=== PATIENT | female | born 1985 | race Caucasian/White ===

== ENCOUNTER 2017-07-08 06:45 | Inpatient (IN) | payer BC ==
[~2017-07-08] VITALS: Ht 157.5 cm; Wt 60.6 kg
--- NOTE | ~2017-07-08 | OP ---
Record Of Operation [facility] [address] [place]. [address] NAME: IRENA GRANDE : 83 STATUS : ADM IN PAT#: [id number] AGE: 32 ADM/REG DATE : 07/08/17 MR#: [id number] REPORT SERV DATE: 07/08/17 DICTATED BY: JORGE A SEALS DATE: 07/08/17 REPORT STATUS : Draft TRANSCRIBED BY: SMOOTH DATE: 07/08/17 DATE OF PROCEDURE: 07/08/2017 PREOPERATIVE DIAGNOSES: 1. Progressive thoracic kyphosis. 2. Scheuermann's kyphosis. 3. Thoracic myelopathy. POSTOPERATIVE DIAGNOSES: 1. Progressive thoracic kyphosis. 2. Scheuermann's kyphosis. 3. Thoracic myelopathy. PROCEDURES: 1. T4-T11 posterolateral fusion bilaterally. 2. T4-T11 posterior segmental spinal instrumentation using Medtronic pedicle screws. 3. T6-T8 laminectomy. 4. T6, T7, and T8 transverse osteotomies. 5. Local morcellized autograft, allograft bone matrix, neuro monitoring, intraoperative O- arm CT scan with computer navigation. 6. Correction of sagittal plane kyphotic deformity. ANESTHESIA: General estimated. BLOOD LOSS: 550 mL. COMPLICATIONS: None. INDICATIONS: The patient is a pleasant 32-year-old with progressive kyphotic deformity, gait disturbance, difficulty with ambulation, failed conservative treatment and after discussion of risks and benefits, elected to proceed with surgery. PROCEDURE IN DETAIL: I identified the patient in the holding area. Consent was obtained. Went to the operating room. Underwent general anesthesia with endotracheal intubation. Prepped and draped in the usual sterile fashion. Operative safety pause was performed, and then we proceeded. A midline longitudinal incision was taken from T4 down to T11, taken down through the fascial layer. Paraspinous muscles subperiosteally elevated to the tips of transverse processes. Self-retaining retractors were placed. O-arm registration frame was placed in the spinous process. O-arm was brought in for intraoperative CT scan. Under computer guidance, pedicle screws from [employer]tr[employer] were placed from T4-T11 bilaterally. O-arm was brought back in for repeat scan to verify good placement of instrumentation. Rods were cut and contoured to appropriate shape and length, placed over the screws and gently reduced. There is some auto fusion in her thoracic spine limiting the degree of correction possible, so as a result, a laminectomy was performed from T6-T8 and transverse osteotomies were performed with series of rongeurs and Kerrison's. Rods were gently and sequentially reduced down to the screws using reduction maneuvers including the persuader device as well Record Of Operation [facility] [id number] [place]. [address] NAME: IRENA GRANDE : 83 STATUS : ADM IN PAT#: [id number] AGE: 32 ADM/REG DATE : 07/08/17 MR#: [id number] REPORT SERV DATE: 07/08/17 DICTATED BY: JORGE A SEALS DATE: 07/08/17 REPORT STATUS : Draft TRANSCRIBED BY: SMOOTH DATE: 07/08/17 as the compression against the screws as well as in situ Benders of the rods. Each of these technique added to further reduction of the kyphotic deformity. Setscrews were placed and final tightened. Final AP and lateral images were obtained that showed substantial correction from her preoperative kyphotic deformity. High-speed decorticating kevin was used to decorticate the remaining bony surfaces of T4-T11. Irrigation performed. Local morcellized autograft and allograft bone matrix were packed over the decorticated surfaces of T4-T11. Subfascial drain was placed. A gram of vancomycin powder sprinkled over the surgical wound. Layered closure performed. Sterile dressings applied. The patient was awoken and extubated, taken to the recovery room in stable condition. OPERATIVE FINDINGS: Severe kyphotic deformity with partial ankylosis, no sustained neuromonitoring alerts occurred. HARPREET/SMOOTH Jorge A Seals DO / [id number] CC: Jorge A Seals DO
--- NOTE | ~2017-07-08 | PREOPHP ---
PreOp History and Physical [facility] [id number] [place]. [address] NAME: IRENA GRANDE : 83 STATUS : ADM IN [facility]#: [id number] AGE: 32 ADM/REG DATE : 07/08/17 MR#: [id number] REPORT SERV DATE: 07/08/17 DICTATED BY: JORGE A SEALS DATE: 07/08/17 REPORT STATUS : Draft TRANSCRIBED BY: SMOOTH DATE: 07/08/17 CHIEF COMPLAINT: Back pain. HISTORY OF PRESENT ILLNESS: The patient is a pleasant 32-year-old female with intractable back pain. She has had progressive signs of kyphosis, difficulty ambulating. She does have some problems with balance. She has failed conservative treatment and after discussion of risks and benefits, elects to proceed with surgical intervention. REVIEW OF SYSTEMS: She denies chest pain, shortness of breath, and bowel or bladder changes. ALLERGIES: EDMUND. HOME MEDICATIONS: Doryx MPC, Onzetra, Soolantra, and topiramate. FAMILY HISTORY: Noncontributory. PAST MEDICAL HISTORY: Includes migraines. PHYSICAL EXAMINATION: VITAL SIGNS: Height is 5 feet 2 inches, weight 133, BMI 24.3. GENERAL: Patient is healthy appearing. No acute distress. PSYCH: Alert and oriented x3. Normal mood and affect. Gait is somewhat unsteady. VASCULAR: No extremity swelling. SPINE: Within normal limits for motion, but has increased thoracic kyphosis. Does seem to reduce somewhat when supine versus standard. HEART: Regular rate and rhythm. LUNGS: Clear to auscultation. ABDOMEN: Soft, nontender, nondistended. Good bowel sounds. BREASTS AND RECTAL: Both deferred. NEUROLOGIC: Strength in lower extremities remains intact. No focal deficits. IMAGING: I have reviewed plain x-rays that does show signs of Scheuermann kyphosis with 74 degrees of kyphosis. MRI scan shows decent reduction of the kyphosis down to 53 degrees. ASSESSMENT: Progressive Scheuermann kyphosis with intractable pain, early signs of myelopathy, likely due to stretch of the thoracic cord from the severe kyphotic deformity. PLAN: The patient presents today for surgical intervention. Consent was obtained. All questions answered. Ready to proceed with surgery. HARPREET/SMOOTH Jorge A Seals DO PreOp History and Physical [address] [place]. [address] NAME: IRENA GRANDE : 83 STATUS : ADM IN PAT#: [id number] AGE: 32 ADM/REG DATE : 07/08/17 MR#: [id number] REPORT SERV DATE: 07/08/17 DICTATED BY: JORGE A SEALS DATE: 07/08/17 REPORT STATUS : Draft TRANSCRIBED BY: JLL DATE: 07/08/17 / [id number] CC: DO Cristian Weir M.D.
[~2017-07-08 06:45] MED LIST: DIFFERIN 0.1% TOP; SOOLANTRA 1% TOP; SUMATRIPTAN NAS; TOPAMAX100 PO; ZOFRAN4 PO
[2017-07-08 18:57] LABS: HEMATOCRIT 35.8 % (36.0-48.0); HEMOGLOBIN 12.4 g/dL (12.0-16.0); MANUAL DIFF YES %; MEAN CORPUS HGB CONC 34.6 g/dL (32.0-36.0); MEAN CORPUSCULAR HEMOGLOB 30.1 pg (26.0-34.0); MEAN CORPUSCULAR VOLUME 86.9 fL (80-100); PLATELET COUNT 228 10/3/uL (150-400); RBC DISTRIBUTION WIDTH 12.8 % (12.0-16.0); RED CELL COUNT 4.12 10/6/uL (4.0-5.6); WHITE BLOOD CELLS 17.2 10/3/uL (4.5-10.5)
[2017-07-08 19:12] LABS: BUN (BLOOD UREA NITROGEN) 9 MG/DL (6-23); CHLORIDE, SERUM 114 MMOL/L (96-112); CO2 (CARBON DIOXIDE) 22 MMOL/L (24-34); CREATININE 0.55 MG/DL (0.55-1.02); GFR AFRICAN AMERICAN 143 ML/MIN (>=60); GFR NON AFRICAN AMERICAN 123 ML/MIN (>=60); POTASSIUM, SERUM 3.9 MMOL/L (3.5-5.3); SODIUM, SERUM 144 MMOL/L (135-148)
[2017-07-08 19:13] LABS: GLUCOSE, SERUM 142 MG/DL (60-99)
[2017-07-08 20:00] LABS: BAND NEUTROPHILS 9 %; LYMPHOCYTES 3 %; LYMPHOCYTES ABSOLUTE (CALC) 0.52 10/3/uL (0.67-4.30); MONOCYTES 2 %; MONOCYTES ABSOLUTE (CALC) 0.34 10/3/uL (0.21-1.20); NEUTROPHILS ABSOLUTE (CALC) 16.34 10/3/uL (2.02-8.40); PLATELET ESTIMATE ADQ (ADEQUATE); RBC MORPHOLOGY NORM (NORMAL); SEGMENTED NEUTROPHIL (0) 86 %; TOTAL NUCLEATED CELLS 100
[2017-07-08] MEDS ORDERED: IBU800 PO (21:13)
[2017-07-08] MEDS ORDERED: PROBIOTIC PO (21:13)
[2017-07-08] MEDS ORDERED: CENTRUM PO (21:14)
[2017-07-09 05:29] LABS: BUN (BLOOD UREA NITROGEN) 7 MG/DL (6-23); CALCIUM, SERUM 7.9 MG/DL (8.5-10.4); CHLORIDE, SERUM 109 MMOL/L (96-112); CREATININE 0.59 MG/DL (0.55-1.02); GFR AFRICAN AMERICAN 140 ML/MIN (>=60); GFR NON AFRICAN AMERICAN 120 ML/MIN (>=60); POTASSIUM, SERUM 4.2 MMOL/L (3.5-5.3)
[2017-07-09 05:30] LABS: CO2 (CARBON DIOXIDE) 17 MMOL/L (24-34); GLUCOSE, SERUM 171 MG/DL (60-99); HEMATOCRIT 32.7 % (36.0-48.0); HEMOGLOBIN 11.3 g/dL (12.0-16.0); MEAN CORPUS HGB CONC 34.6 g/dL (32.0-36.0); MEAN CORPUSCULAR HEMOGLOB 30.1 pg (26.0-34.0); MEAN PLATELET VOLUME 10.7 fL (9.2-13.0); PLATELET COUNT 214 10/3/uL (150-400); RBC DISTRIBUTION WIDTH 12.9 % (12.0-16.0); RED CELL COUNT 3.76 10/6/uL (4.0-5.6); SODIUM, SERUM 135 MMOL/L (135-148); WHITE BLOOD CELLS 13.7 10/3/uL (4.5-10.5)
[2017-07-09 05:34] LABS: MANUAL DIFF YES %
[2017-07-09 06:20] LABS: BAND NEUTROPHILS 15 %; IMMATURE GRANS ABSOLUTE (CALC) 0.14 10/3/uL (0.0-0.11); LYMPHOCYTES 3 %; LYMPHOCYTES ABSOLUTE (CALC) 0.41 10/3/uL (0.67-4.30); METAMYELOCYTES 1 %; MONOCYTES 4 %; MONOCYTES ABSOLUTE (CALC) 0.55 10/3/uL (0.21-1.20); PLATELET ESTIMATE ADQ (ADEQUATE); SEGMENTED NEUTROPHIL (0) 77 %; TOTAL NUCLEATED CELLS 100
[2017-07-09 06:21] LABS: RBC MORPHOLOGY NORM (NORMAL)
[2017-07-11] MEDS ORDERED: FLEX PO (11:49)
[2017-07-11] MEDS ORDERED: PCET PO (11:50)
== END 2017-07-11 14:11 | disposition home or self-care (01) | DRG 457 ==
LOC: ENRESERVTM → ENRESERV → ENRESERVDT → 3SO 10:07 → SDC/OF 10:07 → 3SO 20:03
PROVIDERS: Orthopaedic Surgery
PROC: 0RG70J1 Fusion of 2 to 7 Thoracic Vertebral Joints with Synthetic Substitute, Posterior Approach, Posterior Column, Open Approach (ICD-10-PCS; principal; 2017-07-08 11:45)
PROC: 4A11X4G Monitoring of Peripheral Nervous Electrical Activity, Intraoperative, External Approach (ICD-10-PCS; 2017-07-08 11:45)
DX: M40.294 Other kyphosis, thoracic region (principal); G95.89 Other specified diseases of spinal cord; M42.04 Juvenile osteochondrosis of spine, thoracic region; M43.24 Fusion of spine, thoracic region; G43.909 Migraine, unspecified, not intractable, without status migrainosus; L71.9 Rosacea, unspecified; Z79.899 Other long term (current) drug therapy
CPT/HCPCS: 71010; 80048; 82962; 84703; 85014; 85018; 85025; 87641; 88304; 88311; 97116-GP; 97161-GP; A9270-GY; C1713; J0690; J1644; J2250; J2270; J2370; J2405; J2710; J3010; J3370; P9045